=== PATIENT | female | born 1950 | race African-American/Black ===

== ENCOUNTER → 2017-03-30 | Outpatient (CLI) | payer MEDICARE, MEDICAID ==
[~2017-03-30] MED LIST: ONDA4TAB5 PO; SYN200 PO
== END | disposition home or self-care (01) ==
LOC: MRI 13:11
PROVIDERS: ATTEND Neurological Surgery
DX: M51.24 Other intervertebral disc displacement, thoracic region (principal); M51.34 Other intervertebral disc degeneration, thoracic region
CPT/HCPCS: 72146

== ENCOUNTER 2021-04-09 12:47 | Emergency (ER) | payer OTHER, MEDICAID ==
[~2021-04-09] VITALS: Ht 167.6 cm; Wt 105.0 kg
[2021-04-09] MEDS ORDERED: ONDANSETRON 4MG ODT PO ONE ×2 (13:45→15:30)
[2021-04-09] MEDS ORDERED: KETOROLAC 60MG/2ML VIAL IM ONE (13:45)
[2021-04-09] MEDS ORDERED: HYDROCODONE/ACETAMINOPHEN 5/325MG TABLET PO ONE (13:45)
[2021-04-09 13:48] VITALS: BP 128/87
== END 2021-04-09 16:29 | disposition home or self-care (01) ==
LOC: ER 12:47
DX: M25.562 Pain in left knee (principal); M19.90 Unspecified osteoarthritis, unspecified site; Z85.3 Personal history of malignant neoplasm of breast; Z98.890 Other specified postprocedural states; Z92.3 Personal history of irradiation; Z92.21 Personal history of antineoplastic chemotherapy; Z88.0 Allergy status to penicillin; Z88.5 Allergy status to narcotic agent; Z91.040 Latex allergy status; W01.0XXA Fall on same level from slipping, tripping and stumbling without subsequent striking against object, initial encounter; Y93.89 Activity, other specified; Y92.018 Other place in single-family (private) house as the place of occurrence of the external cause
CPT/HCPCS: 73560; 73590; 96372; 99284; J1885; L1830; Q0162